=== PATIENT | female | born 1980 | race Caucasian/White ===

== ENCOUNTER 2016-12-12 12:30 | Emergency (ER) | payer BC ==
[~2016-12-12] VITALS: Ht 162.6 cm; Wt 50.0 kg
[~2016-12-12 12:30] MED LIST: AMOXICILLIN 8751 TAB PO; ANTIVERT 12.512.5 MG PO; BACTRIM DS 8001 TAB PO; BCP TD; CEPHALEXIN500 M1 PO; DOXYCYCLINE50 M1 PO; FLEXERIL 1010 MG/TAB PO; FLEXERIL10 MG PO; FLEXERIL5 MG PO; LORTAB 5/500 501 TAB PO; METRONIDAZOLE500 MG PO; MOTRIN 600600 MG/TAB PO; MULTIPLE VITAMI1 CAP PO; NAPROSYN500 MG PO; NO HOME MEDICATIONS; NORCO 325 MG-51 TAB PO; NORCO 325 MG-7.1 TAB PO; ORTHO TRI-CYCLE1 TAB PO; PERCR 7.5 PO; PREDNISONE20 MG PO; PROTONIX 40MG T40 MG PO
[2016-12-12 12:32] VITALS: BP 153/80; PULSE 89; TEMP 98.8
[2016-12-12] MEDS ORDERED: FLEXERIL5 MG PO (14:01)
[2016-12-12] MEDS ORDERED: MOBIC 7.5MG7.5 MG PO (14:01)
[2016-12-12] MEDS ORDERED: NORCO 325 MG-51 TAB PO (14:02)
== END 2016-12-12 14:16 | disposition home or self-care (01) ==
LOC: COL.ER 12:30
DX: M54.5 Low back pain (principal); M62.838 Other muscle spasm; F17.210 Nicotine dependence, cigarettes, uncomplicated; X50.0XXA Overexertion from strenuous movement or load, initial encounter
CPT/HCPCS: J1885

== ENCOUNTER → 2019-02-24 | Outpatient (CLI) | payer BC ==
[~2019-02-24] MED LIST changes: +MOBIC 7.5MG7.5 MG PO
== END ==
LOC: COL.RAD 07:33
DX: S73.191D Other sprain of right hip, subsequent encounter (principal); M25.851 Other specified joint disorders, right hip; Z98.890 Other specified postprocedural states

== ENCOUNTER 2019-07-28 21:03 | Emergency (ER) | payer BC ==
[~2019-07-28] VITALS: Ht 162.6 cm; Wt 54.5 kg
[2019-07-28 21:08] VITALS: BP 133/82; PULSE 85; TEMP 99.1
[2019-07-28] MEDS ORDERED: AMOXICILLIN 8751 TAB PO (21:36)
== END 2019-07-28 21:55 | disposition home or self-care (01) ==
LOC: COL.ER 21:03
DX: K02.9 Dental caries, unspecified (principal); Z87.891 Personal history of nicotine dependence

== ENCOUNTER → 2019-11-26 | Outpatient (CLI) | payer BC | LOC: COL.RAD 11:45 | DX: S73.102A Unspecified sprain of left hip, initial encounter (principal) | CPT/HCPCS: A9585; Q9967 ==